=== PATIENT | female | born 1980 | race Caucasian/White ===

== ENCOUNTER 2021-10-01 10:04 | Emergency (ER) | payer BC ==
[2021-10-01] MEDS ORDERED: HYDROmorphone 1 MG/ML Syringe IM ONE (11:20)
== END 2021-10-01 12:29 | disposition home or self-care (01) ==
LOC: JD.ED 10:04
DX: R07.89 Other chest pain (principal); Z88.5 Allergy status to narcotic agent; Z88.0 Allergy status to penicillin; Z91.040 Latex allergy status; Z88.1 Allergy status to other antibiotic agents; Z88.8 Allergy status to other drugs, medicaments and biological substances
CPT/HCPCS: 71101; 96372; 99283; J1170